=== PATIENT | male | born 1940 | race Hispanic/Latino ===

== ENCOUNTER 2017-01-03 15:21 | Emergency (ER) | payer MEDICARE, BC ==
[2017-01-03 15:26] VITALS: TEMP 98.2
[2017-01-03] MEDS ORDERED: Sodium Chloride 0.9% 1,000 ML IV STA (15:30)
[2017-01-03 15:46] LABS: VENOUS BLOOD GAS BASE EXCESS -5.2 mmol/L (0.0-2.0); VENOUS BLOOD GAS PCO2 37 mmHg (40-60); VENOUS BLOOD PH 7.34 (7.32-7.43)
[2017-01-03 16:02] LABS: BASO % 0.4 % (0.0-2.0); EOS # 0.1 K/uL (0.0-0.7); EOS % 1.4 % (0.0-4.0); HEMATOCRIT 44.3 % (35.0-51.0); LYMPH % 23.3 % (20.0-40.0); MEAN CORPUSCULAR HEMOGLOBIN 29.4 pg (27.0-31.0); MEAN CORPUSCULAR HGB CONC 33.1 g/dL (33.0-37.0); MEAN PLATELET VOLUME 8.1 fl (7.2-11.7); MONO # 0.5 K/uL (0.0-0.8); MONO % 5.5 % (0.0-10.0); NEUT # 5.9 K/uL (1.8-7.0); NEUT % 69.4 % (50.0-75.0); NRBC % 0.1 % (0.0-0.0); RED CELL DISTRIBUTION WIDTH 13.9 % (11.5-14.5); WHITE BLOOD COUNT 8.6 K/uL (4.8-10.8)
[2017-01-03 16:09] LABS: ALB/GLOB RATIO 1.6 (1.0-2.1); ALKALINE PHOSPHATASE 51 U/L (38-126); ALT/SGPT 66 U/L (21-72); AST/SGOT 35 U/L (17-59); BLOOD UREA NITROGEN 35 mg/dl (9-20); CALCIUM 10.9 mg/dL (8.4-10.2); CARBON DIOXIDE 18 mmol/L (22-30); CHLORIDE 107 mmol/L (98-107); GFR AFRICAN-AMERICAN 47; GLUCOSE,RANDOM 176 mg/dL (75-110); MAGNESIUM 2.1 MG/DL (1.6-2.3); PHOSPHOROUS 3.3 mg/dl (2.5-4.5); POTASSIUM 4.3 MMOL/L (3.6-5.0); SODIUM 139 mmol/l (132-148); TOTAL PROTEIN 7.2 G/DL (6.3-8.2)
[2017-01-03 16:31] LABS: PARTIAL THROMBOPLASTIN TIME 26.3 Seconds (25.6-37.1)
--- NOTE | 2017-01-03 16:34 | ED PDOC ---
Syncope/Near Syncope/Dizziness Time Seen by Provider: 01/03/17 15:28 Chief Complaint (Nursing): Weakness/Neurological Deficit Chief Complaint (Provider): syncope History Per: Family (son ) History/Exam Limitations: no limitations Onset/Duration Of Symptoms: Mins (prior to arrival ) Additional Complaint(s): Hilario Rosario is a 76 year old male, with a previous medical history of CAD CABG and diabetes, who presents to the ED via EMS after a syncopal episode prior to arrival. Patients son reports patient was walking out of the bathroom when he noticed the patient about to faint and caught him as he was falling then laying him down. Son reports episode lasting for a few seconds but definitely under 30 seconds. Son reports patient then began to wake up slowly with no convulsive activity. Patient states being outdoors for a soccer game from 09:00 to 14:00 this afternoon in the 90 degree weather and did not drink any fluids. He also reports driving to [place] from [place] this morning. He states to currently feeling light headed associated with weakness in all his extremities. Patient denies any shortness of breath, chest pain, focal weakness changes in vision or headache. According to EMS upon their arrival patient BP was systolic of 90 over palp and 2 episodes where patient seemed to be passing out. PMD:Jay Nicolas in [place] Against Medical Advice - AMA Patient Left Against Medical Advice: The patient declines admission to the hospital and wishes to leave the Emergency Department. This action is against my medical advice. This decision was made with informed refusal. The patient was told that admission to the hospital is necessary. Explanation of the reasons why were discussed. The risks of leaving were explained to the patient and include, but are not limited to, worsening of known or currently unknown conditions, permanent disability and from undiagnosed or untreated conditions. The patient has the capacity to make this informed decision and understands my explanation of the current medical problem and risks of leaving. The patient voluntarily accepts these risks and signed an AMA form documenting our conversation. The patient was given the opportunity to ask questions and reconsider. The patient was encouraged to return to the Emergency Department at any time for further care. Past Medical History Reviewed: Historical Data, Nursing Documentation, Vital Signs Vital Signs: Last Vital Signs Temp 98.2 F 01/03/17 15:23 Pulse 66 01/03/17 15:23 Resp 16 01/03/17 15:23 BP 97/48 L 01/03/17 15:23 Pulse Ox 94 L 01/03/17 15:23 - Medical History PMH: CAD, Diabetes - Surgical History Surgical History: CABG - Family History Family History: States: Unknown Family Hx - Social History Current smoker - smoking cessation education provided: No Alcohol: None Drugs: Denies - Home Medications Home Medications: Ambulatory Orders Medication Instructions Recorded Clopidogrel [Plavix] 75 mg PO DAILY #10 tab 01/03/17 Ezetimibe [Zetia] 10 mg PO DAILY #10 tab 01/03/17 Gabapentin 300 mg PO QID #20 capsule 01/03/17 Glimepiride [Amaryl] 1 mg PO BID #10 tab 01/03/17 [place]-3 Acid Ethyl Esters 1 gm PO DAILY #10 capsule 01/03/17 Rosuvastatin Calcium [Crestor] 40 mg PO DAILY #10 tablet 01/03/17 - Allergies Allergies/Adverse Reactions: Allergies Allergy/AdvReac Type Severity Reaction Status Date / Time metoprolol Allergy RASH Verified 01/03/17 15:23 Sulfa (Sulfonamide Allergy RASH Verified 01/03/17 15:23 Antibiotics) Review of Systems ROS Statement: Except As Marked, All Systems Reviewed And Found Negative Eyes: Negative for: Vision Change Cardiovascular: Negative for: Chest Pain Respiratory: Negative for: Shortness of Breath Neurological: Positive for: Weakness (generalized with no focal weakness), Other (light headed ). Negative for: Headache Physical Exam - Physical Exam Appears: Positive for: Non-toxic, No Acute Distress. Negative for: Well ( tiired appearing ) Skin: Positive for: Warm, Diaphoresis, Pallor Eye Exam: Positive for: Normal appearance, EOMI, PERRL. Negative for: Nystagmus ENT: Positive for: Other (tachy mucous membranes ) Neck: Positive for: Normal, Painless ROM, Supple Cardiovascular/Chest: Positive for: Regular Rate, Rhythm, Bradycardia Respiratory: Positive for: Normal Breath Sounds. Negative for: Decreased Breath Sounds, Accessory Muscle Use, Wheezing, Respiratory Distress Gastrointestinal/Abdominal: Positive for: Normal Exam, Bowel Sounds, Soft. Negative for: Tenderness Back: Positive for: Normal Inspection. Negative for: Vertebral Tenderness Extremity: Positive for: Normal ROM. Negative for: Pedal Edema, Deformity Lymphatic: Negative for: Adenopathy Neurologic/Psych: Positive for: Alert, night assistant II-XII (intact ), Oriented (x 3), Cerebellar Tests (normal ). Negative for: Motor/Sensory Deficits - Laboratory Results Result Diagrams: 01/03/17 15:47 01/03/17 15:47 - ECG ECG Rhythm: Positive for: Sinus Bradycardia. Negative for: ST/T Changes O2 Sat by Pulse Oximetry: 94 (RA) Pulse Ox Interpretation: Normal (low) Medical Decision Making Medical Decision Making: Initial Impression: Syncope with differentials including: dehydration, electrolyte abnormality, acute coronary syndrome, heart failure and arrhythmia Initial Plan: * Blood type and screen * VBG shock panel * CT head w/o contrast * EKG * labs * magnesium * phosphorus * Troponin I * Troponin I Q8 * urine dipstick * partial thromboplastin time * prothrombin time * CXR * IV NS 1,000 ml at 1,000 ml/hr * estimator binding cont. * accu-check * reevaluation Given Patient's extensive cardiac history and syncopal episode, patient should be hospitalized for possible cardiac event. 16:22 Patient is refusing CXR and head CT. Patient was informed of the risks of a possible misdiagnosis which could cause sever disability but continues to refuse testing. 1640p Labs demonstrate Elevated BUN/Cr and bicarb 18 (minimally decreased.) Otherwise no clinically significant lab abnormalities. Attempted to reach Dr Thompson PMD. [address] [place], covering phone calls for Dr Thompson. He is not familiar with the patient, and Dr Thompson is out on sick leave. However Dr Jeffery covering for him in the office, which is open tomorrow. Dr Jeffery not available by phone at this time however. Advised hospitalization for syncope and near syncopal episodes. Pt declines and wants to leave. Reviewed risks of leaving against medical advise (, severe disability from cardiac event) but pt declines anyway. AMA signed. Scribe Attestation: Documented by Margie Rajan, acting as a scribe for Sherita Dias MD. Provider Scribe Attestation: All medical record entries made by the Scribe were at my direction and personally dictated by me. I have reviewed the chart and agree that the record accurately reflects my personal performance of the history, physical exam, medical decision making, and the department course for this patient. I have also personally directed, reviewed, and agree with the discharge instructions and disposition. Disposition - Clinical Impression Clinical Impression: Syncope Counseled Patient/Family Regarding: Studies Performed, Diagnosis - Disposition Disposition: Against Medical Advice Disposition Time: 17:00 Condition: UNKNOWN Additional Instructions: RETURN TO ER IMMEDIATELY IF YOU CHANGE YOUR MIND OR IF SYMPTOMS RECUR OR FOR ANY NEW SYMPTOMS DRINK PLENTY OF HYDRATING FLUIDS DO NOT TAKE YOUR BLOOD PRESSURE MEDICATIONS TONIGHT AND DO NOT RESTART UNTIL YOUR BLOOD PRESSURE CONSISTENTLY IS ABOVE 120/80 OR INSTRUCTED BY YOUR PSYCHOLOGIST CLINICAL FOLLOW UP WITH YOUR PSYCHOLOGIST CLINICAL TOMORROW Prescriptions: Clopidogrel [Plavix] 75 mg PO DAILY #10 tab Ezetimibe [Zetia] 10 mg PO DAILY #10 tab Gabapentin 300 mg PO QID #20 capsule Glimepiride [Amaryl] 1 mg PO BID #10 tab [place]-3 Acid Ethyl Esters 1 gm PO DAILY #10 capsule Rosuvastatin Calcium [Crestor] 40 mg PO DAILY #10 tablet Instructions: Dehydration (ED), Syncope (ED), Against Medical Advice (ED)
[2017-01-03 18:44] VITALS: BP 121/63; PULSE 82; RESP 18
[2017-01-03 18:52] VITALS: O2SAT 94
--- NOTE | 2017-01-04 14:03 | CARD ---
APPROVED REPORT EKG Measurement Heart [id number] <Conclusion> Sinus bradycardia with 1st degree AV block Incomplete right bundle branch block Borderline ECG
== END 2017-01-03 18:16 | disposition left against medical advice (07) ==
LOC: H.ER 15:21
DX: R55 Syncope and collapse (principal); E86.0 Dehydration; R53.1 Weakness; R03.1 Nonspecific low blood-pressure reading; E11.9 Type 2 diabetes mellitus without complications; I25.10 Atherosclerotic heart disease of native coronary artery without angina pectoris
CPT/HCPCS: 80053; 82803; 82948; 83735; 84100; 84484; 85025; 85610; 85730; 86850; 86900; 93005; 99284; J7040